=== PATIENT | male | born 1960 | race American Indian/Alaskan Native ===

== ENCOUNTER 2020-06-21 15:13 | Inpatient (IN) | payer OTHER ==
--- NOTE | 2020-06-21 15:40 | Event Note ---
ED Screening Note ED Screening Note: Patient is a 59-year-old male presents emergency room complaints of generalized abdominal pain and abdominal distention that began a week ago He states that the pain is now radiating to his back He has associated nausea but no vomiting He denies any diarrhea He states he had a normal bowel movement today He denies any blood in the stool He is a current every day tobacco user He endorses marijuana use He previously used to use cocaine He is a current everyday drinker and states he drinks both beer and liquor Abdomen is distended and firm This initial assessment/diagnostic orders/clinical plan/treatment(s) is/are subject to change based on patients health status, clinical progression and re-assessment by fellow clinical providers in the ED. Further treatment and workup at subsequent clinical providers discretion. Patient/guardian urged not to elope from the ED as their condition may be serious if not clinically assessed and managed. Initial orders include: labs, xr, ekg, ua MAIN evaluation as soon as possible, charge nurse danial notified pt needs room
[2020-06-21 16:19] LABS: Basophils % (Auto) 0.4 % (0.0-1.8); Eosinophils # (Auto) 0.2 K/mm3 (0.0-0.4); Eosinophils % (Auto) 2.2 % (0.0-4.3); Hematocrit 54.9 % (35.5-45.6); Lymphocytes # (Auto) 2.6 K/mm3 (1.2-5.4); Mean Corpuscular HGB Conc 35 % (32-34); Mean Corpuscular Volume 95 fl (84-94); Monocytes # (Auto) 0.5 K/mm3 (0.0-0.8); Monocytes % (Auto) 6.7 % (0.0-7.3); Platelet Count 224 K/mm3 (140-440)
[2020-06-21 16:27] LABS: Alanine Aminotransferase 22 units/L (7-56); Albumin 4.4 g/dL (3.9-5); BUN/Creatinine Ratio 16; Blood Urea Nitrogen 14 mg/dL (9-20); Calcium 9.6 mg/dL (8.4-10.2); Hemolysis Index 5
[2020-06-21 16:32] LABS: Bacteria,Urine 1+ /HPF (Negative); Bilirubin,Urine NEG (Negative); Blood,Urine MOD (Negative); Color,Urine Straw (Yellow); Protein,Urine <15 mg/dL mg/dL (Negative); Urobilinogen,Urine < 2.0 mg/dL (<2.0)
[2020-06-21 16:34] LABS: Partial Thromboplastin Time 26.2 Sec. (24.2-36.6)
--- NOTE | 2020-06-21 16:38 | XRay Report ---
CHEST 1 VIEW WITH ABDOMINAL SERIES INDICATION / CLINICAL INFORMATION: abd pain radiates to back, abd distension. COMPARISON: Comparison radiographs not available at the time of examination review FINDINGS: SUPPORT DEVICES: None. HEART / MEDIASTINUM: No significant abnormality. LUNGS / PLEURA: Blunting of the right costophrenic angle suggesting small pleural effusion. Minimal p eripheral opacities along the right lung No pneumothorax. TUBES / LINES: None. BOWEL GAS PATTERN: Nonobstructive gas pattern. FREE AIR / EXTRALUMINAL GAS: None seen. ADDITIONAL FINDINGS: IVC filter projects over the L2 vertebral body. IMPRESSION: 1. No acute abdominal abnormality. 2. Small right pleural effusion and linear opacities along the right lung periphery. This could repre sent atelectasis or edema. Recommend clinical correlation and continued follow-up. Signer Name: Betito Denise MD Signed: 06/21/2020 4:33 PM Workstation Name: [id number]
[2020-06-21] MEDS ORDERED: ONDANSETRON 4 MG/2 ML INJ IV ONE (16:57)
[2020-06-21] MEDS ORDERED: MORPHINE 4 MG/1 ML INJ IV ONE (16:57)
--- NOTE | 2020-06-21 17:07 | Emergency Department Report ---
ED Abdominal Pain HPI - General Chief Complaint: Abdominal Pain Stated Complaint: ABD PAIN Time Seen by Provider: 06/21/20 15:38 Source: patient Mode of arrival: Wheelchair Limitations: No Limitations - History of Present Illness Initial Comments: Patient is 59 years old male with no significant past medical history. Patient presented to the ER complaining of abdominal pain for approximately 1 week now. Patient describes his pain as fullness and aching with radiation to the back. Patient stated that he had a bowel movement this morning with no problem. Patient stated that he was vomiting. No fever or chills. Patient denied any previous abdominal surgery. He stated that he has had history of DVT and he had an IVC filter placed long time ago. MD Complaint: abdominal pain -: week(s) Location: diffuse Radiation: back Migration to: no migration Severity: moderate Severity scale (0 -10): 5 Quality: aching, fullness Consistency: constant Improves With: nothing Worsens With: nothing Associated Symptoms: denies other symptoms - Related Data Home Medications Medication Instructions Recorded Confirmed Last Taken No Known Home Medications [No 05/26/13 08/03/15 Unknown Reported Home Medications] Allergies Allergy/AdvReac Type Severity Reaction Status Date / Time No Known Allergies Allergy Verified 08/03/15 14:03 ED Review of Systems ROS: Stated complaint: ABD PAIN Other details as noted in HPI Comment: All other systems reviewed and negative Constitutional: denies: chills, fever Respiratory: denies: cough, shortness of breath, SOB with exertion, SOB at rest Cardiovascular: denies: chest pain, palpitations Gastrointestinal: abdominal pain. denies: nausea, vomiting, diarrhea, constipation, hematemesis, melena, hematochezia Musculoskeletal: back pain Neurological: denies: headache, weakness ED Past Medical Hx - Past Medical History Previous Medical History?: No Additional medical history: PE ? - Social History Smoking Status: Current Every Day Smoker Substance Use Type: Alcohol - Medications Home Medications: Home Medications Medication Instructions Recorded Confirmed Last Taken Type No Known Home Medications [No 05/26/13 08/03/15 Unknown History Reported Home Medications] ED Physical Exam - General Limitations: No Limitations General appearance: in distress (due to pain) - Head Head exam: Present: atraumatic, normocephalic, normal inspection - Eye Eye exam: Present: normal appearance - ENT ENT exam: Present: normal exam, normal orophraynx, mucous membranes moist - Neck Neck exam: Present: normal inspection, full ROM. Absent: tenderness, meningismu s - Respiratory Respiratory exam: Present: normal lung sounds bilaterally - Cardiovascular Cardiovascular Exam: Present: regular rate, normal rhythm, normal heart sounds - GI/Abdominal GI/Abdominal exam: Present: soft, distended, tenderness, normal bowel sounds. Absent: guarding, rebound, rigid, organomegaly, mass, bruit, pulsatile mass, hernia - Extremities Exam Extremities exam: Present: normal inspection, full ROM, normal capillary refill. Absent: tenderness, pedal edema, joint swelling, calf tenderness - Back Exam Back exam: Present: normal inspection, full ROM. Absent: CVA tenderness (R), C VA tenderness (L) - Neurological Exam Neurological exam: Present: alert, oriented X3, CN II-XII intact - Psychiatric Psychiatric exam: Present: normal mood - Skin Skin exam: Present: warm, intact, normal color ED Course Vital Signs 06/21/20 06/21/20 06/21/20 15:37 17:15 18:29 Temperature 98.1 F Pulse Rate 91 H 84 86 Respiratory 20 16 18 Rate Blood Pressure 185/116 Blood Pressure 161/109 166/107 [Right] O2 Sat by Pulse 98 94 99 Oximetry ED Medical Decision Making - Lab Data Result diagrams: 06/21/20 15:43 06/21/20 15:43 - EKG Data -: EKG Interpreted by Ia - Radiology Data Radiology results: report reviewed - Medical Decision Making Patient is 59 years old male with no significant past medical history. Patient presented to the ER complaining of abdominal pain for approximately 1 week now. Patient describes his pain as fullness and aching with radiation to the back. Patient stated that he had a bowel movement this morning with no problem. Patient stated that he was vomiting. No fever or chills. Patient denied any previous abdominal surgery. He stated that he has had history of DVT and he had an IVC filter placed long time ago. Patient received morphine, Dilaudid and Zofran. CT abdomen and pelvis showed small bowel obstruction. I discussed the patient with Dr. Ribeiro, she advised to bring NG tube, normal saline and admit to the hospitalist for further management. I discussed the patient with Dr. Romero, he agreed to admit the patient to medical service for further management. Critical care attestation.: If time is entered above; I have spent that time in minutes in the direct care of this critically ill patient, excluding procedure time. ED Disposition Clinical Impression: Acute abdominal pain, Small bowel obstruction Disposition: OP ADMIT IP TO THIS HOSP Is pt being admited?: Yes Condition: Stable
--- NOTE | 2020-06-21 18:59 | Cat Scan Report ---
CT ABDOMEN AND PELVIS WITH CONTRAST INDICATION / CLINICAL INFORMATION: MAIN. TECHNIQUE: Axial CT images were obtained through the abdomen and pelvis after 100 cc Omnipaque 300 milligrams pe rcent IV contrast. All CT scans at this location are performed using CT dose reduction for ALARA by means of automated exposure control. COMPARISON: None available. FINDINGS: LOWER CHEST: Linear scarring present right base. Heart size upper limits of normal LIVER: No significant abnormality. GALLBLADDER: No significant abnormality. BILE DUCTS: No significant abnormality. PANCREAS: No significant abnormality. SPLEEN: No significant abnormality. ADRENALS: No significant abnormality. RIGHT KIDNEY and URETER: No significant abnormality. LEFT KIDNEY and URETER: No significant abnormality. STOMACH and SMALL BOWEL: Multiple dilated loops of small bowel predominantly fluid-filled COLON: No significant abnormality. APPENDIX: No significant abnormality. PERITONEUM: No free fluid. No free air. No fluid collection. LYMPH NODES: No significant adenopathy. AORTA and ARTERIES: No significant abnormality. IVC and VEINS: IVC filter in place URINARY BLADDER: No significant abnormality. REPRODUCTIVE ORGANS: No significant abnormality. ADDITIONAL FINDINGS: Small hiatal hernia SKELETAL SYSTEM: No significant abnormality. IMPRESSION: 1. Abnormal intestinal gas pattern, small bowel obstruction should be considered 2. IVC filter in place Signer Name: Naga Field MD Signed: 06/21/2020 6:55 PM Workstation Name: [id number]
[2020-06-21] MEDS ORDERED: SODIUM CHLORIDE 0.9% 1000 ML 1,000 ML IV ONE (19:27)
[2020-06-21] MEDS ORDERED: HYDROmorphone 1 MG/1 ML INJ IV ONE (19:27)
[2020-06-21] MEDS ORDERED: ACETAMINOPHEN 325 MG TAB PO PRN (22:07)
[2020-06-21] MEDS ORDERED: MORPHINE 2 MG/1 ML INJ IV PRN (22:07)
[2020-06-21] MEDS ORDERED: METOCLOPRAMIDE 10 MG/2 ML INJ IV PRN (22:07)
[2020-06-21] MEDS ORDERED: ONDANSETRON 4 MG/2 ML INJ IV PRN (22:07)
--- NOTE | 2020-06-21 22:07 | History and Physical Report ---
History of Present Illness Date of examination: 06/21/20 Date of admission: 06/21/20 19:28 Chief complaint: Abdominal pain and vomiting for 1 week History of present illness: 59-year-old -Citizen Of [place] male with no significant past medical history comes into the emergency room for severe abdominal pain of 1 week duration. Abdominal pain was intermittent for 1 week associated with nausea and vomiting. From this morning the abdominal pain has increased and vomited 3-4 times. Pain is about 10 on a scale of 1-10 sharp in nature. Intermittent in nature. Radiation to the back present. Patient states he had a bowel movement this morning with no problems. Patient denies any past abdominal surgeries. Patient had one history of DVT/pulmonary embolism. Pulmonary embolism was in . Food is a exacerbating factor. Not eating anything is a relieving factor. Abdominal distention present. Pain happens on its - Past Medical History Previous Medical History?: No Additional medical history: PE ? Past surgical history No - Social History Smoking Status: Current Every Day Smoker Substance Use Type: Alcohol Family history Htn Review of Systems ROS: GI severe abdominal pain and nausea vomiting and abdominal distention present. 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 Skin no rash no itching Psychiatric no depression no homicidal or suicidal tendencies Hematologic no lymphedema or bruising Endocrine no polydipsia no polyuria no cold intolerance no heat intolerance Medications and Allergies Allergies Allergy/AdvReac Type Severity Reaction Status Date / Time No Known Allergies Allergy Verified 08/03/15 14:03 Home Medications Medication Instructions Recorded Confirmed Last Taken Type No Known Home Medications [No 05/26/13 06/22/20 Unknown History Reported Home Medications] Active Meds: Active Medications Sodium Chloride (Nacl 0.9% 1000 Ml) 1,000 mls @ 250 mls/hr IV ONCE ONE Stop: 06/21/20 23:26 Last Admin: 06/21/20 20:10 Dose: 250 mls/hr Documented by: Exam - Constitutional Vitals: Temp Pulse Resp BP Pulse Ox 98.1 F 85 24 187/124 91 06/21/20 15:37 06/21/20 20:01 06/21/20 20:01 06/21/20 20:01 06/21/20 20:01 General appearance: Present: no acute distress, well-nourished - EENT Eyes: Present: PERRL ENT: hearing intact, clear oral mucosa - Neck Neck: Present: supple, normal ROM - Respiratory Respiratory effort: normal Respiratory: bilateral: CTA - Cardiovascular Heart rate: 98 Rhythm: regular Heart Sounds: Present: S1 & S2. Absent: rub, click - Extremities Extremities: pulses symmetrical, No edema Peripheral Pulses: within normal limits - Abdominal General gastrointestinal: Present: soft, tender, distended, hypoactive bowel sounds Localized gastrointestinal: tender: diffuse, guarding: diffuse Male genitourinary: Present: normal - Integumentary Integumentary: Present: clear, warm, dry - Musculoskeletal Musculoskeletal: gait normal, strength equal bilaterally - Psychiatric Psychiatric: appropriate mood/affect, intact judgment & insight - Neurologic Neurologic: CNII-XII intact, moves all extremities - Allied Health Allied health notes reviewed: nursing, case management HEART Score - HEART Score Troponin: Troponin T < 0.010 ng/mL (0.00-0.029) 06/21/20 15:43 Results - Labs CBC & Chem 7: 06/21/20 15:43 06/21/20 15:43 Labs: Laboratory Last Values WBC 8.0 K/mm3 (4.5-11.0) 06/21/20 15:43 RBC 5.80 M/mm3 (3.65-5.03) H 06/21/20 15:43 Hgb 19.0 gm/dl (11.8-15.2) H 06/21/20 15:43 Hct 54.9 % (35.5-45.6) H 06/21/20 15:43 MCV 95 fl (84-94) H 06/21/20 15:43 MCH 33 pg (28-32) H 06/21/20 15:43 MCHC 35 % (32-34) H 06/21/20 15:43 RDW 14.0 % (13.2-15.2) 06/21/20 15:43 Plt Count 224 K/mm3 (140-440) 06/21/20 15:43 Lymph % (Auto) 33.0 % (13.4-35.0) 06/21/20 15:43 [place] % (Auto) 6.7 % (0.0-7.3) 06/21/20 15:43 Eos % (Auto) 2.2 % (0.0-4.3) 06/21/20 15:43 Baso % (Auto) 0.4 % (0.0-1.8) 06/21/20 15:43 Lymph # (Auto) 2.6 K/mm3 (1.2-5.4) 06/21/20 15:43 [place] # (Auto) 0.5 K/mm3 (0.0-0.8) 06/21/20 15:43 Eos # (Auto) 0.2 K/mm3 (0.0-0.4) 06/21/20 15:43 Baso # (Auto) 0.0 K/mm3 (0.0-0.1) 06/21/20 15:43 Seg Neutrophils % 57.7 % (40.0-70.0) 06/21/20 15:43 Seg Neutrophils # 4.6 K/mm3 (1.8-7.7) 06/21/20 15:43 PT 13.1 Sec. (12.2-14.9) 06/21/20 15:43 INR 1.00 (0.87-1.13) 06/21/20 15:43 APTT 26.2 Sec. (24.2-36.6) 06/21/20 15:43 Sodium 136 mmol/L (137-145) L 06/21/20 15:43 Potassium 4.6 mmol/L (3.6-5.0) 06/21/20 15:43 Chloride 98.2 mmol/L (98-107) 06/21/20 15:43 Carbon Dioxide 28 mmol/L (22-30) 06/21/20 15:43 Anion Gap 14 mmol/L 06/21/20 15:43 BUN 14 mg/dL (9-20) 06/21/20 15:43 Creatinine 0.9 mg/dL (0.8-1.3) 06/21/20 15:43 Estimated GFR > 60 ml/min 06/21/20 15:43 BUN/Creatinine Ratio 16 % 06/21/20 15:43 Glucose 115 mg/dL (75-100) H 06/21/20 15:43 Calcium 9.6 mg/dL (8.4-10.2) 06/21/20 15:43 Total Bilirubin 0.50 mg/dL (0.1-1.2) 06/21/20 15:43 AST 16 units/L (5-40) 06/21/20 15:43 ALT 22 units/L (7-56) 06/21/20 15:43 Alkaline Phosphatase 101 units/L (35-129) 06/21/20 15:43 Troponin T < 0.010 ng/mL (0.00-0.029) 06/21/20 15:43 NT-Pro-B Natriuret Pep 823.2 pg/mL (0-900) 06/21/20 15:43 Total Protein 7.4 g/dL (6.3-8.2) 06/21/20 15:43 Albumin 4.4 g/dL (3.9-5) 06/21/20 15:43 Albumin/Globulin Ratio 1.5 % 06/21/20 15:43 Lipase 51 units/L (13-60) 06/21/20 15:43 Urine Color Straw (Yellow) 06/21/20 Unknown Urine Turbidity Clear (Clear) 06/21/20 Unknown Urine pH 7.0 (5.0-7.0) 06/21/20 Unknown Ur Specific [place] 1.004 (1.003-1.030) 06/21/20 Unknown Urine Protein <15 mg/dl mg/dL (Negative) 06/21/20 Unknown Urine Glucose (UA) Neg mg/dL (Negative) 06/21/20 Unknown Urine Ketones Neg mg/dL (Negative) 06/21/20 Unknown Urine Blood Mod (Negative) 06/21/20 Unknown Urine Nitrite Neg (Negative) 06/21/20 Unknown Urine Bilirubin Neg (Negative) 06/21/20 Unknown Urine Urobilinogen < 2.0 mg/dL (<2.0) 06/21/20 Unknown Ur Leukocyte Esterase Neg (Negative) 06/21/20 Unknown Urine WBC (Auto) 2.0 /HPF (0.0-6.0) 06/21/20 Unknown Urine RBC (Auto) 1.0 /HPF (0.0-6.0) 06/21/20 Unknown U Epithel Cells (Auto) < 1.0 /HPF (0-13.0) 06/21/20 Unknown Urine Bacteria (Auto) 1+ /HPF (Negative) 06/21/20 Unknown - Imaging and Cardiology CT scan - abdomen: report reviewed Imaging and Cardiology: Chest x-ray No acute abdominal abnormality Small right pleural effusion and linear opacities along the right lung periphery this could represent atelectasis or edema. CT of the abdomen Abnormal intestinal gas pattern small obstruction should be considered IVC filter in place. Multiple dilated loops of small bowel predominantly fluid-filled Assessment and Plan Advance Directives: Yes (Full code) VTE prophylaxis?: Chemical Plan of care discussed with patient/family: Yes - Patient Problems (1) Small bowel obstruction Current Visit: Yes Status: Acute Plan to address problem: Small bowel obstruction Multiple dilated loops of small bowel with fluid-filled NG tube for now Surgical consult requested IV fluids and IV Zofran and IV metoclopramide Pain management with IV Dilaudid-patient in severe pain (2) Polycythemia due to fall in plasma volume Current Visit: Yes Status: Acute Plan to address problem: Due to fall in plasma volume secondary to vomiting IV fluids for now (3) Nicotine dependence Current Visit: Yes Status: Chronic Qualifiers: Nicotine product type: cigarettes Plan to address problem: Patient counseled Patient started on NicoDerm patch (4) DVT prophylaxis Current Visit: Yes Status: Acute Plan to address problem: On heparin and GI prophylaxis
[2020-06-21] MEDS ORDERED: SODIUM CHLORIDE 0.9% 1000 ML 1,000 ML IV SCH (22:15)
[2020-06-21] MEDS: HYDROmorphone 1 MG/1 ML INJ IV PRN (23:52)
[2020-06-21] MEDS: FAMOTIDINE 20 MG/2 ML INJ IV SCH (23:52)
[2020-06-21] MEDS: hydrALAZINE 20 MG/1 ML INJ IV PRN (23:55)
[2020-06-22] MEDS: HYDROmorphone 1 MG/1 ML INJ IV PRN (05:32)
[2020-06-22] MEDS: hydrALAZINE 20 MG/1 ML INJ IV PRN (05:32)
--- NOTE | 2020-06-22 07:49 | Progress Note ---
Assessment and Plan Assessment and plan: (1) Small bowel obstruction Current Visit: Yes Status: Acute Plan to address problem: Small bowel obstruction Multiple dilated loops of small bowel with fluid-filled NG tube for now Surgical consult requested IV fluids and IV Zofran and IV metoclopramide Pain management with IV Dilaudid-patient in severe pain (2) Polycythemia due to fall in plasma volume Current Visit: Yes Status: Acute Plan to address problem: Due to fall in plasma volume secondary to vomiting IV fluids for now (3) Nicotine dependence Current Visit: Yes Status: Chronic Qualifiers: Nicotine product type: cigarettes Plan to address problem: Patient counseled Patient started on NicoDerm patch (4) DVT prophylaxis Current Visit: Yes Status: Acute Plan to address problem: On heparin and GI prophylaxis 06/22/2020 -Patient has NG tube but is not on suction, was seen by general surgery and wants to keep the NG tube for now -Patient did not pass gas -Abdominal pain with distention -We will continue to monitor and follow general surgery recommendations. -Patient has high blood pressure and is on hydralazine IV as needed, will start with p.o. antihypertensives and pain medications once surgery cleared him for oral intake. History Interval history: Patient was seen and evaluated this morning Patient is complaining abdominal pain Patient has distended abdomen, did not pass gas, no bowel movement Does not have any vomiting, but did feel nauseous earlier Hospitalist Physical - Physical exam Narrative exam: Not in cardiopulmonary distress. The patient appeared well nourished and normally developed. Vital signs as documented. Head exam is unremarkable. No scleral icterus . Neck is without jugular venous distension, thyromegaly, or carotid bruits. Lungs are clear to auscultation. Cardiac exam reveals regular rate and Rhythm. Abdominal exam reveals terminal tenderness Extremities are nonedematous and both femoral and pedal pulses are normal. 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 No focal weakness. - Constitutional Vitals: Temp Pulse Resp BP Pulse Ox 98.3 F 91 H 20 185/112 98 06/22/20 04:48 06/22/20 04:48 06/22/20 05:32 06/22/20 04:48 06/22/20 04:48 General appearance: Present: no acute distress, well-nourished HEART Score - HEART Score Troponin: Troponin T < 0.010 ng/mL (0.00-0.029) 06/21/20 15:43 Results - Labs CBC & Chem 7: 06/22/20 08:03 06/22/20 08:03 Labs: Laboratory Last Values WBC 8.0 K/mm3 (4.5-11.0) 06/21/20 15:43 RBC 5.80 M/mm3 (3.65-5.03) H 06/21/20 15:43 Hgb 19.0 gm/dl (11.8-15.2) H 06/21/20 15:43 Hct 54.9 % (35.5-45.6) H 06/21/20 15:43 MCV 95 fl (84-94) H 06/21/20 15:43 MCH 33 pg (28-32) H 06/21/20 15:43 MCHC 35 % (32-34) H 06/21/20 15:43 RDW 14.0 % (13.2-15.2) 06/21/20 15:43 Plt Count 224 K/mm3 (140-440) 06/21/20 15:43 Lymph % (Auto) 33.0 % (13.4-35.0) 06/21/20 15:43 [place] % (Auto) 6.7 % (0.0-7.3) 06/21/20 15:43 Eos % (Auto) 2.2 % (0.0-4.3) 06/21/20 15:43 Baso % (Auto) 0.4 % (0.0-1.8) 06/21/20 15:43 Lymph # (Auto) 2.6 K/mm3 (1.2-5.4) 06/21/20 15:43 [place] # (Auto) 0.5 K/mm3 (0.0-0.8) 06/21/20 15:43 Eos # (Auto) 0.2 K/mm3 (0.0-0.4) 06/21/20 15:43 Baso # (Auto) 0.0 K/mm3 (0.0-0.1) 06/21/20 15:43 Seg Neutrophils % 57.7 % (40.0-70.0) 06/21/20 15:43 Seg Neutrophils # 4.6 K/mm3 (1.8-7.7) 06/21/20 15:43 PT 13.1 Sec. (12.2-14.9) 06/21/20 15:43 INR 1.00 (0.87-1.13) 06/21/20 15:43 APTT 26.2 Sec. (24.2-36.6) 06/21/20 15:43 Sodium 136 mmol/L (137-145) L 06/21/20 15:43 Potassium 4.6 mmol/L (3.6-5.0) 06/21/20 15:43 Chloride 98.2 mmol/L (98-107) 06/21/20 15:43 Carbon Dioxide 28 mmol/L (22-30) 06/21/20 15:43 Anion Gap 14 mmol/L 06/21/20 15:43 BUN 14 mg/dL (9-20) 06/21/20 15:43 Creatinine 0.9 mg/dL (0.8-1.3) 06/21/20 15:43 Estimated GFR > 60 ml/min 06/21/20 15:43 BUN/Creatinine Ratio 16 % 06/21/20 15:43 Glucose 115 mg/dL (75-100) H 06/21/20 15:43 Calcium 9.6 mg/dL (8.4-10.2) 06/21/20 15:43 Total Bilirubin 0.50 mg/dL (0.1-1.2) 06/21/20 15:43 AST 16 units/L (5-40) 06/21/20 15:43 ALT 22 units/L (7-56) 06/21/20 15:43 Alkaline Phosphatase 101 units/L (35-129) 06/21/20 15:43 Troponin T < 0.010 ng/mL (0.00-0.029) 06/21/20 15:43 NT-Pro-B Natriuret Pep 823.2 pg/mL (0-900) 06/21/20 15:43 Total Protein 7.4 g/dL (6.3-8.2) 06/21/20 15:43 Albumin 4.4 g/dL (3.9-5) 06/21/20 15:43 Albumin/Globulin Ratio 1.5 % 06/21/20 15:43 Lipase 51 units/L (13-60) 06/21/20 15:43 Urine Color Straw (Yellow) 06/21/20 Unknown Urine Turbidity Clear (Clear) 06/21/20 Unknown Urine pH 7.0 (5.0-7.0) 06/21/20 Unknown Ur Specific [place] 1.004 (1.003-1.030) 06/21/20 Unknown Urine Protein <15 mg/dl mg/dL (Negative) 06/21/20 Unknown Urine Glucose (UA) Neg mg/dL (Negative) 06/21/20 Unknown Urine Ketones Neg mg/dL (Negative) 06/21/20 Unknown Urine Blood Mod (Negative) 06/21/20 Unknown Urine Nitrite Neg (Negative) 06/21/20 Unknown Urine Bilirubin Neg (Negative) 06/21/20 Unknown Urine Urobilinogen < 2.0 mg/dL (<2.0) 06/21/20 Unknown Ur Leukocyte Esterase Neg (Negative) 06/21/20 Unknown Urine WBC (Auto) 2.0 /HPF (0.0-6.0) 06/21/20 Unknown Urine RBC (Auto) 1.0 /HPF (0.0-6.0) 06/21/20 Unknown U Epithel Cells (Auto) < 1.0 /HPF (0-13.0) 06/21/20 Unknown Urine Bacteria (Auto) 1+ /HPF (Negative) 06/21/20 Unknown Bower/IV: Voiding Method Urinal Active Medications - Current Medications Current Medications: Generic Name Dose Route Start Last Admin Trade Name Freq PRN Reason Stop Dose Admin Acetaminophen 650 mg 06/21/20 22:07 Acetaminophen 325 Mg Tab PO Q4H PRN Pain MILD(1-3)/Fever >100.5/PORRAS Famotidine 20 mg 06/21/20 23:00 06/21/20 23:52 Famotidine 20 Mg/2 Ml Inj IV 20 mg BID JESSIE Administration Heparin Sodium (Porcine) 5,000 unit 06/22/20 10:00 Heparin 5,000 Unit/1 Ml Vial SUB-Q Q12HR JESSIE Hydralazine HCl 10 mg 06/21/20 23:21 06/22/20 05:32 Hydralazine 20 Mg/1 Ml Inj IV 10 mg Q6H PRN Administration Hypertension Hydromorphone HCl 1 mg 06/21/20 22:07 06/22/20 05:32 Hydromorphone 1 Mg/1 Ml Inj IV 1 mg Q3H PRN Administration Pain , Severe (7-10) Sodium Chloride 1,000 mls @ 75 mls/hr 06/21/20 22:15 06/21/20 23:53 Nacl 0.9% 1000 Ml IV 75 mls/hr DIRECT JESSIE Administration Metoclopramide HCl 10 mg 06/21/20 22:07 Metoclopramide 10 Mg/2 Ml Inj IV Q6H PRN Nausea And Vomiting Morphine Sulfate 2 mg 06/21/20 22:07 Morphine 2 Mg/1 Ml Inj IV Q4H PRN Pain, Moderate (4-6) Ondansetron HCl 4 mg 06/21/20 22:07 06/21/20 23:51 Ondansetron 4 Mg/2 Ml Inj IV 4 mg Q3H PRN Administration Nausea And Vomiting Sodium Chloride 10 ml 06/22/20 10:00 06/21/20 23:53 Sodium Chloride 0.9% 10 Ml Flush Syringe IV 10 ml BID JESSIE Administration Sodium Chloride 10 ml 06/21/20 22:07 Sodium Chloride 0.9% 10 Ml Flush Syringe IV PRN PRN LINE FLUSH
[2020-06-22 08:25] LABS: Basophils % (Auto) 0.4 % (0.0-1.8); Eosinophils # (Auto) 0.1 K/mm3 (0.0-0.4); Eosinophils % (Auto) 1.9 % (0.0-4.3); Lymphocytes # (Auto) 2.5 K/mm3 (1.2-5.4); Lymphocytes % (Auto) 35.6 % (13.4-35.0); Mean Corpuscular HGB Conc 35 % (32-34); Mean Corpuscular Volume 94 fl (84-94); Monocytes # (Auto) 0.5 K/mm3 (0.0-0.8); Monocytes % (Auto) 7.4 % (0.0-7.3); Platelet Count 203 K/mm3 (140-440); Red Blood Count 5.67 M/mm3 (3.65-5.03); Red Cell Distribution Width 13.4 % (13.2-15.2)
[2020-06-22 08:31] LABS: Hematocrit 53.5 % (35.5-45.6); Hemoglobin 18.9 gm/dl (11.8-15.2)
[2020-06-22 08:49] LABS: Alanine Aminotransferase 20 units/L (7-56); Albumin 3.9 g/dL (3.9-5); BUN/Creatinine Ratio 11; Blood Urea Nitrogen 9 mg/dL (9-20); Calcium 9.1 mg/dL (8.4-10.2); Hemolysis Index 17
[2020-06-22] MEDS: FAMOTIDINE 20 MG/2 ML INJ IV SCH ×2 (09:46→21:06)
[2020-06-22] MEDS: HEPARIN 5,000 UNIT/1 ML VIAL SUB-Q SCH ×2 (09:46→21:06)
[2020-06-22] MEDS ORDERED: IBUPROFEN 800 MG TAB PO PRN (13:19)
[2020-06-22] MEDS ORDERED: POLYETHYLENE GLYCOL 3350 17 GM POWDER PO PRN (13:20)
--- NOTE | 2020-06-22 13:25 | Consultation ---
History of Present Illness Consult date: 06/22/20 Reason for consult: abdominal pain Chief complaint: Abdominal pain - History of present illness History of present illness: 59-year-old male who presented to the emergency room with 1 day of mid and lower abdominal pain that started suddenly. The patient states that he has never had pain like this before. The pain was sharp and constant. He denies nausea or vomiting. He states that he did have a bowel movement before coming to the hospital which was formed and green. He is passing flatus. Today he states he feels much better. He does complain of a headache and some flank pain but states his abdominal pain is completely resolved. He feels hungry. No nausea or vomiting. No fevers or chills. He states the last thing he ate was a few chicken sandwiches from [employer]. No sick contacts. Past History Past Medical History: other (? PE) Past Surgical History: No surgical history Social history: smoking, alcohol abuse Family history: no significant family history Medications and Allergies Allergies Allergy/AdvReac Type Severity Reaction Status Date / Time No Known Allergies Allergy Verified 08/03/15 14:03 Home Medications Medication Instructions Recorded Confirmed Last Taken Type No Known Home Medications [No 05/26/13 06/22/20 Unknown History Reported Home Medications] Active Meds: Active Medications Acetaminophen (Acetaminophen 325 Mg Tab) 650 mg PO Q4H PRN PRN Reason: Pain MILD(1-3)/Fever >100.5/PORRAS Last Admin: 06/22/20 09:55 Dose: 650 mg Documented by: Docusate Sodium (Docusate Sodium 100 Mg Cap) 100 mg PO BID [facility] Famotidine (Famotidine 20 Mg/2 Ml Inj) 20 mg IV BID [facility] Last Admin: 06/22/20 09:46 Dose: 20 mg Documented by: Heparin Sodium (Porcine) (Heparin 5,000 Unit/1 Ml Vial) 5,000 unit SUB-Q Q12HR [facility] Last Admin: 06/22/20 09:46 Dose: 5,000 unit Documented by: Hydralazine HCl (Hydralazine 20 Mg/1 Ml Inj) 10 mg IV Q6H PRN PRN Reason: Hypertension Last Admin: 06/22/20 05:32 Dose: 10 mg Documented by: Hydromorphone HCl (Hydromorphone 1 Mg/1 Ml Inj) 1 mg IV Q3H PRN PRN Reason: Pain , Severe (7-10) Last Admin: 06/22/20 05:32 Dose: 1 mg Documented by: Sodium Chloride (Nacl 0.9% 1000 Ml) 1,000 mls @ 75 mls/hr IV DIRECT [facility] Last Admin: 06/21/20 23:53 Dose: 75 mls/hr Documented by: Ibuprofen (Ibuprofen 800 Mg Tab) 800 mg PO Q8H PRN PRN Reason: Headache Metoclopramide HCl (Metoclopramide 10 Mg/2 Ml Inj) 10 mg IV Q6H PRN PRN Reason: Nausea And Vomiting Morphine Sulfate (Morphine 2 Mg/1 Ml Inj) 2 mg IV Q4H PRN PRN Reason: Pain, Moderate (4-6) Ondansetron HCl (Ondansetron 4 Mg/2 Ml Inj) 4 mg IV Q3H PRN PRN Reason: Nausea And Vomiting Last Admin: 06/21/20 23:51 Dose: 4 mg Documented by: Polyethylene Glycol (Polyethylene Glycol 3350 17 Gm Powder) 17 gm PO QDAY PRN PRN Reason: Constipation Sodium Chloride (Sodium Chloride 0.9% 10 Ml Flush Syringe) 10 ml IV BID [facility] Last Admin: 06/22/20 09:47 Dose: 10 ml Documented by: Sodium Chloride (Sodium Chloride 0.9% 10 Ml Flush Syringe) 10 ml IV PRN PRN PRN Reason: LINE FLUSH Review of Systems All systems: negative (10 point ROS performed and negative except for that listed in HPI) Exam Vital Signs Temp Pulse Resp BP Pulse Ox 98.1 F 91 H 20 185/116 98 06/21/20 15:37 06/21/20 15:37 06/21/20 15:37 06/21/20 15:37 06/21/20 15:37 Narrative exam: Gen.: Awake, alert, oriented 3. No apparent distress ENT: NG tube with scant clear mucus aspirate. Trachea midline. No lymphadenopathy. No scleral icterus or conjunctival pallor CV: S1, S2 present Respiratory: No audible wheezes Abdomen: Soft, mildly distendedprotuberant, nontender. No rebound, rigidity, guarding Extremities: No clubbing, cyanosis, edema Results - Labs 06/22/20 08:03 06/22/20 08:03 Abnormal lab results 06/21/20 06/21/2021 Range/Units 15:43 15:43 08:03 RBC 5.80 H 5.67 H (3.65-5.03) M/mm3 Hgb 19.0 H 18.9 H (11.8-15.2) gm/dl Hct 54.9 H 53.5 H (35.5-45.6) % MCV 95 H (84-94) fl MCH 33 H 33 H (28-32) pg MCHC 35 H 35 H (32-34) % Lymph % (Auto) 35.6 H (13.4-35.0) % [place] % (Auto) 7.4 H (0.0-7.3) % Sodium 136 L (137-145) mmol/L Glucose 115 H (75-100) mg/dL 06/22/20 Range/Units 08:03 RBC (3.65-5.03) M/mm3 Hgb (11.8-15.2) gm/dl Hct (35.5-45.6) % MCV (84-94) fl MCH (28-32) pg MCHC (32-34) % Lymph % (Auto) (13.4-35.0) % [place] % (Auto) (0.0-7.3) % Sodium (137-145) mmol/L Glucose 114 H (75-100) mg/dL Diabetes panel 06/21/20 06/22/20 06/22/20 Range/Units 15:43 08:03 08:03 Sodium 136 L 137 (137-145) mmol/L Potassium 4.6 4.4 (3.6-5.0) mmol/L Chloride 98.2 102.7 (98-107) mmol/L Carbon Dioxide 28 25 (22-30) mmol/L BUN 14 9 (9-20) mg/dL Creatinine 0.9 0.8 (0.8-1.3) mg/dL Glucose 115 H 114 H (75-100) mg/dL Hemoglobin A1c 6.0 (4-6) % Calcium 9.6 9.1 (8.4-10.2) mg/dL AST 16 17 (5-40) units/L ALT 22 20 (7-56) units/L Alkaline Phosphatase 101 94 (35-129) units/L Total Protein 7.4 6.3 (6.3-8.2) g/dL Albumin 4.4 3.9 (3.9-5) g/dL Calcium panel 06/21/20 06/22/20 Range/Units 15:43 08:03 Calcium 9.6 9.1 (8.4-10.2) mg/dL Albumin 4.4 3.9 (3.9-5) g/dL Pituitary panel 06/21/20 06/22/20 Range/Units 15:43 08:03 Sodium 136 L 137 (137-145) mmol/L Potassium 4.6 4.4 (3.6-5.0) mmol/L Chloride 98.2 102.7 (98-107) mmol/L Carbon Dioxide 28 25 (22-30) mmol/L BUN 14 9 (9-20) mg/dL Creatinine 0.9 0.8 (0.8-1.3) mg/dL Glucose 115 H 114 H (75-100) mg/dL Calcium 9.6 9.1 (8.4-10.2) mg/dL Adrenal panel 06/21/20 06/22/20 Range/Units 15:43 08:03 Sodium 136 L 137 (137-145) mmol/L Potassium 4.6 4.4 (3.6-5.0) mmol/L Chloride 98.2 102.7 (98-107) mmol/L Carbon Dioxide 28 25 (22-30) mmol/L BUN 14 9 (9-20) mg/dL Creatinine 0.9 0.8 (0.8-1.3) mg/dL Glucose 115 H 114 H (75-100) mg/dL Calcium 9.6 9.1 (8.4-10.2) mg/dL Total Bilirubin 0.50 0.90 (0.1-1.2) mg/dL AST 16 17 (5-40) units/L ALT 22 20 (7-56) units/L Alkaline Phosphatase 101 94 (35-129) units/L Total Protein 7.4 6.3 (6.3-8.2) g/dL Albumin 4.4 3.9 (3.9-5) g/dL - Imaging CT scan - abdomen: report reviewed, image reviewed CT scan - pelvis: report reviewed, image reviewed Assessment and Plan 59-year-old male with abdominal pain, fluid-filled small bowel loops - likely enteritis Patient stable without nausea vomiting. Abdominal pain is resolved. White count is normal. Electrolytes are within normal limits. Plan: 1. DC NGT 2. start CLD, adv as anastacio 3. gentle IVF 4. GI ppx 5. Prn pain control 6. Back pain - UA neg. further w/u per 1' team 7. bowel regimen 8. No acute surgical intervention at this time Thank you for this consultation. Please call with any questions or concerns. Evaluation and treatment of this patient was during the time of the national and state emergency arising from COVID19 coronavirus pandemic. Treatment and procedures performed meet the current and available best practice and guidelines for patient during the COVID pandemic.
[2020-06-22] MEDS: hydrALAZINE 25 MG TAB PO SCH ×3 (14:10→21:05)
[2020-06-22] MEDS: NIFEdipine XL 90 MG TAB PO SCH (14:10)
--- NOTE | 2020-06-22 14:11 | XRay Report ---
ABDOMEN 4 VIEW(S) INDICATION: Small bowel obstruction. COMPARISON: Acute abdominal series and CT abdomen and pelvis with contrast from 06/21/2020. FINDINGS: Bowel gas pattern: No dilated bowel loops or other significant abnormalities. Free air: None seen. Stones: None seen. Chest: Right pleural-parenchymal scarring is unchanged. No other significant abnormality. Additional Findings: An NG tube terminates over the gastric body. A previously seen IVC filter is unc hanged. IMPRESSION: 1. No radiographic evidence of a small bowel obstruction or other acute abnormality. 2. IVC Filter Recommendation: IVC filters should be removed if possible when they are no longer clini raymond necessary. (1) Refer to the established IVC filter management plan; (2) If there is no establis hed plan for the patient's IVC filter, consider referral to interventional/vascular clinician on a no nemergent basis for evaluation. Signer Name: Wilfrid Sher MD Signed: 06/22/2020 9:41 AM Workstation Name: [id number]
[2020-06-22] MEDS: oxyCODONE /ACETAMINOPHEN 5-325MG TAB PO PRN (21:05)
[2020-06-22] MEDS: DOCUSATE SODIUM 100 MG CAP PO SCH (21:05)
[2020-06-23] MEDS: oxyCODONE /ACETAMINOPHEN 5-325MG TAB PO PRN ×2 (06:12→18:17)
[2020-06-23] MEDS: hydrALAZINE 25 MG TAB PO SCH ×3 (06:13→21:29)
--- NOTE | 2020-06-23 09:33 | Electrocardiograph Report ---
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
[2020-06-23] MEDS: DICYCLOMINE 10 MG/5 ML ORAL LIQD PO SCH ×4 (10:11→21:28)
[2020-06-23] MEDS: DOCUSATE SODIUM 100 MG CAP PO SCH ×2 (10:12→21:28)
[2020-06-23] MEDS: FAMOTIDINE 20 MG/2 ML INJ IV SCH ×2 (10:13→21:28)
[2020-06-23] MEDS: NIFEdipine XL 90 MG TAB PO SCH (10:13)
[2020-06-23] MEDS: HEPARIN 5,000 UNIT/1 ML VIAL SUB-Q SCH ×2 (10:14→21:28)
[2020-06-23] MEDS ORDERED: oxyCODONE /ACETAMINOPHEN 5-325MG TAB PO SCH (11:00)
[2020-06-23] MEDS: CYCLOBENZAPRINE 10 MG TAB PO SCH ×2 (11:03→18:12)
--- NOTE | 2020-06-23 11:24 | Progress Note ---
Assessment and Plan Assessment and plan: (1) Small bowel obstruction Current Visit: Yes Status: Acute Plan to address problem: Small bowel obstruction Multiple dilated loops of small bowel with fluid-filled NG tube for now Surgical consult requested IV fluids and IV Zofran and IV metoclopramide Pain management with IV Dilaudid-patient in severe pain (2) Polycythemia due to fall in plasma volume Current Visit: Yes Status: Acute Plan to address problem: Due to fall in plasma volume secondary to vomiting IV fluids for now (3) Nicotine dependence Current Visit: Yes Status: Chronic Qualifiers: Nicotine product type: cigarettes Plan to address problem: Patient counseled Patient started on NicoDerm patch (4) DVT prophylaxis Current Visit: Yes Status: Acute Plan to address problem: On heparin and GI prophylaxis 06/22/2020 -Patient has NG tube but is not on suction, was seen by general surgery and wants to keep the NG tube for now -Patient did not pass gas -Abdominal pain with distention -We will continue to monitor and follow general surgery recommendations. -Patient has high blood pressure and is on hydralazine IV as needed, will start with p.o. antihypertensives and pain medications once surgery cleared him for oral intake. 06/23/2020 -Patient had bowel movement yesterday. X-ray showed resolution of intestinal obstruction -Patient is complaining severe back/kidney pain. CT was negative for any abnormalities in the kidney. Renal function is within normal limit -Pain control -Patient has been using cocaine and marijuana; counseled about cessation of using it -We will do x-ray of the lumbar spine, PT evaluation. History Interval history: Patient was seen and evaluated this morning She does complaining a lot of back pain Patient had bowel movement yesterday Hospitalist Physical - Physical exam Narrative exam: Not in cardiopulmonary distress. The patient appeared well nourished and normally developed. Vital signs as documented. Head exam is unremarkable. No scleral icterus . Neck is without jugular venous distension, thyromegaly, or carotid bruits. Lungs are clear to auscultation. Cardiac exam reveals regular rate and Rhythm. Abdominal exam reveals terminal tenderness Extremities are nonedematous and both femoral and pedal pulses are normal. 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 No focal weakness. - Constitutional Vitals: Temp Pulse Resp BP Pulse Ox 97.3 F L 80 20 111/77 97 06/23/20 10:29 06/23/20 10:29 06/23/20 10:29 06/23/20 10:29 06/23/20 10:29 General appearance: Present: no acute distress, well-nourished HEART Score - HEART Score Troponin: Troponin T < 0.010 ng/mL (0.00-0.029) 06/21/20 15:43 Results - Labs CBC & Chem 7: 06/22/20 08:03 06/22/20 08:03 Labs: Laboratory Last Values WBC 7.0 K/mm3 (4.5-11.0) 06/22/20 08:03 RBC 5.67 M/mm3 (3.65-5.03) H 06/22/20 08:03 Hgb 18.9 gm/dl (11.8-15.2) H 06/22/20 08:03 Hct 53.5 % (35.5-45.6) H 06/22/20 08:03 MCV 94 fl (84-94) 06/22/20 08:03 MCH 33 pg (28-32) H 06/22/20 08:03 MCHC 35 % (32-34) H 06/22/20 08:03 RDW 13.4 % (13.2-15.2) 06/22/20 08:03 Plt Count 203 K/mm3 (140-440) 06/22/20 08:03 Lymph % (Auto) 35.6 % (13.4-35.0) H 06/22/20 08:03 Weber % (Auto) 7.4 % (0.0-7.3) H 06/22/20 08:03 Eos % (Auto) 1.9 % (0.0-4.3) 06/22/20 08:03 Baso % (Auto) 0.4 % (0.0-1.8) 06/22/20 08:03 Lymph # (Auto) 2.5 K/mm3 (1.2-5.4) 06/22/20 08:03 Weber # (Auto) 0.5 K/mm3 (0.0-0.8) 06/22/20 08:03 Eos # (Auto) 0.1 K/mm3 (0.0-0.4) 06/22/20 08:03 Baso # (Auto) 0.0 K/mm3 (0.0-0.1) 06/22/20 08:03 Seg Neutrophils % 54.7 % (40.0-70.0) 06/22/20 08:03 Seg Neutrophils # 3.8 K/mm3 (1.8-7.7) 06/22/20 08:03 PT 13.1 Sec. (12.2-14.9) 06/21/20 15:43 INR 1.00 (0.87-1.13) 06/21/20 15:43 APTT 26.2 Sec. (24.2-36.6) 06/21/20 15:43 Sodium 137 mmol/L (137-145) 06/22/20 08:03 Potassium 4.4 mmol/L (3.6-5.0) 06/22/20 08:03 Chloride 102.7 mmol/L (98-107) 06/22/20 08:03 Carbon Dioxide 25 mmol/L (22-30) 06/22/20 08:03 Anion Gap 14 mmol/L 06/22/20 08:03 BUN 9 mg/dL (9-20) 06/22/20 08:03 Creatinine 0.8 mg/dL (0.8-1.3) 06/22/20 08:03 Estimated GFR > 60 ml/min 06/22/20 08:03 BUN/Creatinine Ratio 11 % 06/22/20 08:03 Glucose 114 mg/dL (75-100) H 06/22/20 08:03 Hemoglobin A1c 6.0 % (4-6) 06/22/20 08:03 Calcium 9.1 mg/dL (8.4-10.2) 06/22/20 08:03 Total Bilirubin 0.90 mg/dL (0.1-1.2) 06/22/20 08:03 AST 17 units/L (5-40) 06/22/20 08:03 ALT 20 units/L (7-56) 06/22/20 08:03 Alkaline Phosphatase 94 units/L (35-129) 06/22/20 08:03 Troponin T < 0.010 ng/mL (0.00-0.029) 06/21/20 15:43 NT-Pro-B Natriuret Pep 823.2 pg/mL (0-900) 06/21/20 15:43 Total Protein 6.3 g/dL (6.3-8.2) 06/22/20 08:03 Albumin 3.9 g/dL (3.9-5) 06/22/20 08:03 Albumin/Globulin Ratio 1.6 % 06/22/20 08:03 Lipase 51 units/L (13-60) 06/21/20 15:43 Urine Color Straw (Yellow) 06/21/20 Unknown Urine Turbidity Clear (Clear) 06/21/20 Unknown Urine pH 7.0 (5.0-7.0) 06/21/20 Unknown Ur Specific [place] 1.004 (1.003-1.030) 06/21/20 Unknown Urine Protein <15 mg/dl mg/dL (Negative) 06/21/20 Unknown Urine Glucose (UA) Neg mg/dL (Negative) 06/21/20 Unknown Urine Ketones Neg mg/dL (Negative) 06/21/20 Unknown Urine Blood Mod (Negative) 06/21/20 Unknown Urine Nitrite Neg (Negative) 06/21/20 Unknown Urine Bilirubin Neg (Negative) 06/21/20 Unknown Urine Urobilinogen < 2.0 mg/dL (<2.0) 06/21/20 Unknown Ur Leukocyte Esterase Neg (Negative) 06/21/20 Unknown Urine WBC (Auto) 2.0 /HPF (0.0-6.0) 06/21/20 Unknown Urine RBC (Auto) 1.0 /HPF (0.0-6.0) 06/21/20 Unknown U Epithel Cells (Auto) < 1.0 /HPF (0-13.0) 06/21/20 Unknown Urine Bacteria (Auto) 1+ /HPF (Negative) 06/21/20 Unknown Bower/IV: Voiding Method Urinal Active Medications - Current Medications Current Medications: Generic Name Dose Route Start Last Admin Trade Name Freq PRN Reason Stop Dose Admin Acetaminophen 650 mg 06/21/20 22:07 06/22/20 09:55 Acetaminophen 325 Mg Tab PO 650 mg Q4H PRN Administration Pain MILD(1-3)/Fever >100.5/PORRAS Cyclobenzaprine HCl 10 mg 06/23/20 11:00 06/23/20 11:03 Cyclobenzaprine 10 Mg Tab PO 10 mg Q8H JESSIE Administration Dicyclomine HCl 10 mg 06/23/20 10:00 06/23/20 10:11 Dicyclomine 10 Mg/5 Ml Oral Liqd PO Not Given QID [facility] Docusate Sodium 100 mg 06/22/20 22:00 06/23/20 10:12 Docusate Sodium 100 Mg Cap PO 100 mg BID [facility] Administration Famotidine 20 mg 06/21/20 23:00 06/23/20 10:13 Famotidine 20 Mg/2 Ml Inj IV 20 mg BID [facility] Administration Heparin Sodium (Porcine) 5,000 unit 06/22/20 10:00 06/23/20 10:14 Heparin 5,000 Unit/1 Ml Vial SUB-Q 5,000 unit Q12HR [facility] Administration Hydralazine HCl 10 mg 06/21/20 23:21 06/22/20 05:32 Hydralazine 20 Mg/1 Ml Inj IV 10 mg Q6H PRN Administration Hypertension Hydralazine HCl 50 mg 06/22/20 13:33 06/23/20 06:13 Hydralazine 25 Mg Tab PO 50 mg Q8HR [facility] Administration Hydromorphone HCl 1 mg 06/21/20 22:07 06/22/20 05:32 Hydromorphone 1 Mg/1 Ml Inj IV 1 mg Q3H PRN Administration Pain , Severe (7-10) Ibuprofen 800 mg 06/22/20 13:19 06/22/20 16:40 Ibuprofen 800 Mg Tab PO 800 mg Q8H PRN Administration Headache Morphine Sulfate 2 mg 06/21/20 22:07 Morphine 2 Mg/1 Ml Inj IV Q4H PRN Pain, Moderate (4-6) Nifedipine 90 mg 06/22/20 14:00 06/23/20 10:13 Nifedipine Xl 90 Mg Tab PO Not Given QDAY [facility] Ondansetron HCl 4 mg 06/21/20 22:07 06/21/20 23:51 Ondansetron 4 Mg/2 Ml Inj IV 4 mg Q3H PRN Administration Nausea And Vomiting Oxycodone/Acetaminophen 2 tab 06/23/20 10:30 Oxycodone /Acetaminophen 5-325mg Tab PO Q6H PRN Pain, Moderate (4-6) Oxycodone/Acetaminophen 1 tab 06/23/20 11:00 Oxycodone /Acetaminophen 5-325mg Tab PO 06/23/20 13:00 ONCE JESSIE Polyethylene Glycol 17 gm 06/22/20 13:20 Polyethylene Glycol 3350 17 Gm Powder PO QDAY PRN Constipation Sodium Chloride 10 ml 06/22/20 10:00 06/23/20 10:13 Sodium Chloride 0.9% 10 Ml Flush Syringe IV 10 ml BID JESSIE Administration Sodium Chloride 10 ml 06/21/20 22:07 Sodium Chloride 0.9% 10 Ml Flush Syringe IV PRN PRN LINE FLUSH
--- NOTE | 2020-06-23 13:44 | XRay Report ---
LUMBOSACRAL SPINE 3 VIEWS INDICATION / CLINICAL INFORMATION: Lower back pain. COMPARISON: None available. FINDINGS: BONES / JOINT(S): There are 4 non-ribbed vertebral bodies There is moderate anterior spurring at what I will refer to as L3-4 and milder anterior spurring at L4-5 without significant disc space narrowin g. There are mild hypertrophic changes involving the facet joints in the lower lumbar spine bilateral ly. The pedicles are intact and the SI joints are normal. There is no evidence of fracture, subluxati on or destructive lesion. SOFT TISSUES: No significant abnormality. ADDITIONAL FINDINGS: There is an IVC filter centered at the L3 level on the right. IMPRESSION: 1. Mild spondylosis. 2. IVC filter without acute complication. IVC Filter Recommendation: IVC filters should be removed if possible when they are no longer clinical ly necessary. (1) Refer to the established IVC filter management plan; (2) If there is no established plan for the patient's IVC filter, consider referral to interventional/vascular clinician on a nonem ergent basis for evaluation. Signer Name: Betito Darling MD Signed: 06/23/2020 1:39 PM Workstation Name: [id number]
--- NOTE | 2020-06-23 14:08 | Progress Note ---
Assessment and Plan 59-year-old male with abdominal pain, fluid-filled small bowel loops - likely enteritis Patient stable, tolerating diet without nausea vomiting. Abdominal pain is resolved. White count is normal. Electrolytes are within normal limits. Plan: 1. adv diet as anastacio 2. recommend further w/u of back pain - etiology unknown. May need renal u/s vs CT A/P without IV contrast to evaluate for kidney stones. Lumbar xr ordered. Will defer to primary team. Will s/o. Thank you. Please call with any questions or concerns. Evaluation and treatment of this patient was during the time of the national and state emergency arising from COVID19 coronavirus pandemic. Treatment and procedures performed meet the current and available best practice and guidelines for patient during the COVID pandemic. Subjective Date of service: 06/23/20 Narrative: Pt seen and examined. Denies abdominal pain, n/v. Tolerating clear liquid diet. Had small BM yesterday and is passing flatus. c/o severe b/l lower back pain R>L. Objective Vital Signs - 12hr 06/23/20 06/23/20 06/23/20 05:37 06:12 10:29 Temperature 98.0 F 97.3 F L Pulse Rate 103 H 80 Respiratory 18 18 20 Rate Blood Pressure 129/78 Blood Pressure 111/77 [Right] O2 Sat by Pulse 94 97 Oximetry - General physical appearance Narrative Exam: Gen: AAOx3. NAD CV; S1, S2+ Resp: even and unlabored Abd: soft, protuberant, NT. No r/r/g Ext: no c/c/e Musc: +CVA TTP R>L - Labs 06/22/20 08:03 06/22/20 08:03
[2020-06-24] MEDS: CYCLOBENZAPRINE 10 MG TAB PO SCH ×3 (02:16→18:06)
[2020-06-24] MEDS: hydrALAZINE 25 MG TAB PO SCH ×2 (05:52→15:13)
[2020-06-24] MEDS: oxyCODONE /ACETAMINOPHEN 5-325MG TAB PO PRN (05:54)
[2020-06-24 06:30] LABS: Basophils % (Auto) 0.9 % (0.0-1.8); Eosinophils # (Auto) 0.2 K/mm3 (0.0-0.4); Eosinophils % (Auto) 4.4 % (0.0-4.3); Hematocrit 53.8 % (35.5-45.6); Hemoglobin 18.3 gm/dl (11.8-15.2); Lymphocytes % (Auto) 39.6 % (13.4-35.0); Mean Corpuscular HGB Conc 34 % (32-34); Mean Corpuscular Volume 94 fl (84-94); Monocytes # (Auto) 0.4 K/mm3 (0.0-0.8); Monocytes % (Auto) 8.3 % (0.0-7.3); Platelet Count 220 K/mm3 (140-440); Red Blood Count 5.73 M/mm3 (3.65-5.03); Red Cell Distribution Width 13.7 % (13.2-15.2)
[2020-06-24 06:45] LABS: BUN/Creatinine Ratio 12; Blood Urea Nitrogen 12 mg/dL (9-20); Calcium 9.2 mg/dL (8.4-10.2); Hemolysis Index 16
--- NOTE | 2020-06-24 08:14 | Cat Scan Report ---
CT ABDOMEN AND PELVIS WITH CONTRAST HISTORY: MAIN. COMPARISON: None. TECHNIQUE: CT images of the abdomen and pelvis were obtained following administration of intravenous contrast. All CT scans at this location are performed using CT dose reduction for ALARA by means of automated exposure control. CONTRAST: 100 ml of intravenous contrast administered. FINDINGS: Lungs/bones: There is increased density and atelectasis within the right lower lung. Large dense are a of opacity in the right lower lung measures 5.8 x 1.6 cm. Abdomen/pelvis: There is fatty infiltration of the liver. Spleen, adrenal glands, pancreas and gallb ladder appear normal. Small hiatal hernia. Thickening of the distal esophagus. Kidneys appear normal. There are fluid-filled small bowel loops however no dilatation or evidence for obstructive change. N o focal inflammatory change. No free fluid is identified. There may be a tiny amount of gas within th e urinary bladder is fundus degenerative changes seen throughout spine. Posterior disc bulges at L4-5 and L5-S1. Mild atherosclerotic changes seen throughout the aorta and IVC filter is noted. IMPRESSION: 1. No evidence for bowel obstruction is seen. The left colon wall appears mildly thickened however th ere is incomplete distention. No focal inflammatory change. 2. Increased densities in the lower lungs with larger solid density which could represent atelectasis measuring 5.8 x 1.6 cm in the right lower lung. Infiltrate cannot be excluded. 3. Tiny focus of gas in urinary bladder. Correlation with urinalysis. Kidneys appear normal in size a nd shape and appearance. 4. Degenerative changes seen throughout spine. Signer Name: Elmer Medellin MD Signed: 06/24/2020 8:09 AM Workstation Name: [id number]
--- NOTE | 2020-06-24 08:48 | Progress Note ---
Assessment and Plan Assessment and plan: (1) Small bowel obstruction Current Visit: Yes Status: Acute Plan to address problem: Small bowel obstruction Multiple dilated loops of small bowel with fluid-filled NG tube for now Surgical consult requested IV fluids and IV Zofran and IV metoclopramide Pain management with IV Dilaudid-patient in severe pain (2) Polycythemia due to fall in plasma volume Current Visit: Yes Status: Acute Plan to address problem: Due to fall in plasma volume secondary to vomiting IV fluids for now (3) Nicotine dependence Current Visit: Yes Status: Chronic Qualifiers: Nicotine product type: cigarettes Plan to address problem: Patient counseled Patient started on NicoDerm patch (4) DVT prophylaxis Current Visit: Yes Status: Acute Plan to address problem: On heparin and GI prophylaxis 06/22/2020 -Patient has NG tube but is not on suction, was seen by general surgery and wants to keep the NG tube for now -Patient did not pass gas -Abdominal pain with distention -We will continue to monitor and follow general surgery recommendations. -Patient has high blood pressure and is on hydralazine IV as needed, will start with p.o. antihypertensives and pain medications once surgery cleared him for oral intake. 06/23/2020 -Patient had bowel movement yesterday. X-ray showed resolution of intestinal obstruction -Patient is complaining severe back/kidney pain. CT was negative for any abnormalities in the kidney. Renal function is within normal limit -Pain control -Patient has been using cocaine and marijuana; counseled about cessation of using it -We will do x-ray of the lumbar spine, PT evaluation. 06/24/2020 - CT abdomen and pelvis with contrast was done and significant for right lower lung mass 5.8 x 1.6 cm. Pulmonary consulted. Stanislawuin for possible infiltrate. History Interval history: Patient was seen and evaluated this morning Patient is pain is getting better Hospitalist Physical - Physical exam Narrative exam: Not in cardiopulmonary distress. The patient appeared well nourished and normally developed. Vital signs as documented. Head exam is unremarkable. No scleral icterus . Neck is without jugular venous distension, thyromegaly, or carotid bruits. Lungs are clear to auscultation. Cardiac exam reveals regular rate and Rhythm. Abdominal exam reveals terminal tenderness Extremities are nonedematous and both femoral and pedal pulses are normal. CHANGE MANAGEMENT LEAD: Alert and oriented 3. No focal weakness. - Constitutional Vitals: Temp Pulse Resp BP Pulse Ox 97.7 F 94 H 16 132/84 96 06/24/20 05:46 06/24/20 05:52 06/24/20 05:46 06/24/20 05:52 06/24/20 05:46 General appearance: Present: no acute distress, well-nourished HEART Score - HEART Score Troponin: Troponin T < 0.010 ng/mL (0.00-0.029) 06/21/20 15:43 Results - Labs CBC & Chem 7: 06/24/20 05:54 06/24/20 05:54 Labs: Laboratory Last Values WBC 5.1 K/mm3 (4.5-11.0) 06/24/20 05:54 RBC 5.73 M/mm3 (3.65-5.03) H 06/24/20 05:54 Hgb 18.3 gm/dl (11.8-15.2) H 06/24/20 05:54 Hct 53.8 % (35.5-45.6) H 06/24/20 05:54 MCV 94 fl (84-94) 06/24/20 05:54 MCH 32 pg (28-32) 06/24/20 05:54 MCHC 34 % (32-34) 06/24/20 05:54 RDW 13.7 % (13.2-15.2) 06/24/20 05:54 Plt Count 220 K/mm3 (140-440) 06/24/20 05:54 Lymph % (Auto) 39.6 % (13.4-35.0) H 06/24/20 05:54 [place] % (Auto) 8.3 % (0.0-7.3) H 06/24/20 05:54 Eos % (Auto) 4.4 % (0.0-4.3) H 06/24/20 05:54 Baso % (Auto) 0.9 % (0.0-1.8) 06/24/20 05:54 Lymph # (Auto) 2.0 K/mm3 (1.2-5.4) 06/24/20 05:54 [place] # (Auto) 0.4 K/mm3 (0.0-0.8) 06/24/20 05:54 Eos # (Auto) 0.2 K/mm3 (0.0-0.4) 06/24/20 05:54 Baso # (Auto) 0.0 K/mm3 (0.0-0.1) 06/24/20 05:54 Seg Neutrophils % 46.8 % (40.0-70.0) 06/24/20 05:54 Seg Neutrophils # 2.4 K/mm3 (1.8-7.7) 06/24/20 05:54 PT 13.1 Sec. (12.2-14.9) 06/21/20 15:43 INR 1.00 (0.87-1.13) 06/21/20 15:43 APTT 26.2 Sec. (24.2-36.6) 06/21/20 15:43 Sodium 136 mmol/L (137-145) L 06/24/20 05:54 Potassium 4.4 mmol/L (3.6-5.0) 06/24/20 05:54 Chloride 99.1 mmol/L (98-107) 06/24/20 05:54 Carbon Dioxide 27 mmol/L (22-30) 06/24/20 05:54 Anion Gap 14 mmol/L 06/24/20 05:54 BUN 12 mg/dL (9-20) 06/24/20 05:54 Creatinine 1.0 mg/dL (0.8-1.3) 06/24/20 05:54 Estimated GFR > 60 ml/min 06/24/20 05:54 BUN/Creatinine Ratio 12 % 06/24/20 05:54 Glucose 93 mg/dL (75-100) 06/24/20 05:54 Hemoglobin A1c 6.0 % (4-6) 06/22/20 08:03 Calcium 9.2 mg/dL (8.4-10.2) 06/24/20 05:54 Total Bilirubin 0.90 mg/dL (0.1-1.2) 06/22/20 08:03 AST 17 units/L (5-40) 06/22/20 08:03 ALT 20 units/L (7-56) 06/22/20 08:03 Alkaline Phosphatase 94 units/L (35-129) 06/22/20 08:03 Troponin T < 0.010 ng/mL (0.00-0.029) 06/21/20 15:43 NT-Pro-B Natriuret Pep 823.2 pg/mL (0-900) 06/21/20 15:43 Total Protein 6.3 g/dL (6.3-8.2) 06/22/20 08:03 Albumin 3.9 g/dL (3.9-5) 06/22/20 08:03 Albumin/Globulin Ratio 1.6 % 06/22/20 08:03 Lipase 51 units/L (13-60) 06/21/20 15:43 Urine Color Straw (Yellow) 06/21/20 Unknown Urine Turbidity Clear (Clear) 06/21/20 Unknown Urine pH 7.0 (5.0-7.0) 06/21/20 Unknown Ur Specific [place] 1.004 (1.003-1.030) 06/21/20 Unknown Urine Protein <15 mg/dl mg/dL (Negative) 06/21/20 Unknown Urine Glucose (UA) Neg mg/dL (Negative) 06/21/20 Unknown Urine Ketones Neg mg/dL (Negative) 06/21/20 Unknown Urine Blood Mod (Negative) 06/21/20 Unknown Urine Nitrite Neg (Negative) 06/21/20 Unknown Urine Bilirubin Neg (Negative) 06/21/20 Unknown Urine Urobilinogen < 2.0 mg/dL (<2.0) 06/21/20 Unknown Ur Leukocyte Esterase Neg (Negative) 06/21/20 Unknown Urine WBC (Auto) 2.0 /HPF (0.0-6.0) 06/21/20 Unknown Urine RBC (Auto) 1.0 /HPF (0.0-6.0) 06/21/20 Unknown U Epithel Cells (Auto) < 1.0 /HPF (0-13.0) 06/21/20 Unknown Urine Bacteria (Auto) 1+ /HPF (Negative) 06/21/20 Unknown Bower/IV: Voiding Method Toilet Active Medications - Current Medications Current Medications: Generic Name Dose Route Start Last Admin Trade Name Freq PRN Reason Stop Dose Admin Acetaminophen 650 mg 06/21/20 22:07 06/22/20 09:55 Acetaminophen 325 Mg Tab PO 650 mg Q4H PRN Administration Pain MILD(1-3)/Fever >100.5/PORRAS Cyclobenzaprine HCl 10 mg 06/23/20 11:00 06/24/20 02:16 Cyclobenzaprine 10 Mg Tab PO 10 mg Q8H JESSIE Administration Dicyclomine HCl 10 mg 06/23/20 10:00 06/23/20 21:28 Dicyclomine 10 Mg/5 Ml Oral Liqd PO 10 mg QID [facility] Administration Docusate Sodium 100 mg 06/22/20 22:00 06/23/20 21:28 Docusate Sodium 100 Mg Cap PO 100 mg BID [facility] Administration Famotidine 20 mg 06/21/20 23:00 06/23/20 21:28 Famotidine 20 Mg/2 Ml Inj IV 20 mg BID [facility] Administration Heparin Sodium (Porcine) 5,000 unit 06/22/20 10:00 06/23/20 21:28 Heparin 5,000 Unit/1 Ml Vial SUB-Q 5,000 unit Q12HR [facility] Administration Hydralazine HCl 10 mg 06/21/20 23:21 06/22/20 05:32 Hydralazine 20 Mg/1 Ml Inj IV 10 mg Q6H PRN Administration Hypertension Hydralazine HCl 50 mg 06/22/20 13:33 06/24/20 05:52 Hydralazine 25 Mg Tab PO 50 mg Q8HR [facility] Administration Hydromorphone HCl 1 mg 06/21/20 22:07 06/22/20 05:32 Hydromorphone 1 Mg/1 Ml Inj IV 1 mg Q3H PRN Administration Pain , Severe (7-10) Ibuprofen 800 mg 06/22/20 13:19 06/22/20 16:40 Ibuprofen 800 Mg Tab PO 800 mg Q8H PRN Administration Headache Levofloxacin 750 mg 06/24/20 10:00 Levofloxacin 750 Mg Tab PO Q24HR [facility] Protocol Morphine Sulfate 2 mg 06/21/20 22:07 Morphine 2 Mg/1 Ml Inj IV Q4H PRN Pain, Moderate (4-6) Nifedipine 90 mg 06/22/20 14:00 06/23/20 10:13 Nifedipine Xl 90 Mg Tab PO Not Given QDAY [facility] Ondansetron HCl 4 mg 06/21/20 22:07 06/21/20 23:51 Ondansetron 4 Mg/2 Ml Inj IV 4 mg Q3H PRN Administration Nausea And Vomiting Oxycodone/Acetaminophen 2 tab 06/23/20 10:30 06/24/20 05:54 Oxycodone /Acetaminophen 5-325mg Tab PO 2 tab Q6H PRN Administration Pain, Moderate (4-6) Polyethylene Glycol 17 gm 06/22/20 13:20 Polyethylene Glycol 3350 17 Gm Powder PO QDAY PRN Constipation Sodium Chloride 10 ml 06/22/20 10:00 06/23/20 21:32 Sodium Chloride 0.9% 10 Ml Flush Syringe IV 10 ml BID JESSIE Administration Sodium Chloride 10 ml 06/21/20 22:07 Sodium Chloride 0.9% 10 Ml Flush Syringe IV PRN PRN LINE FLUSH
[2020-06-24] MEDS: FAMOTIDINE 20 MG/2 ML INJ IV SCH ×2 (10:05→21:02)
[2020-06-24] MEDS: DOCUSATE SODIUM 100 MG CAP PO SCH ×2 (10:05→21:03)
[2020-06-24] MEDS: NIFEdipine XL 90 MG TAB PO SCH (10:05)
[2020-06-24] MEDS: levoFLOXacin 750 MG TAB PO SCH (10:05)
[2020-06-24] MEDS: HEPARIN 5,000 UNIT/1 ML VIAL SUB-Q SCH ×2 (10:06→21:02)
[2020-06-24] MEDS: DICYCLOMINE 10 MG/5 ML ORAL LIQD PO SCH ×3 (12:12→22:25)
--- NOTE | 2020-06-24 13:20 | Event Note ---
Date: 06/24/20 Patient does not have lung mass on on CT of abdomen and pelvis. Agree with radiology read that his is more likely atelectasis. Also no evidence of mass seen on CXR. Patient has no pulmonary symptoms and is not requiring oxygen. No further work up or assessment at this time. Smoking cessation.
[2020-06-25] MEDS: hydrALAZINE 25 MG TAB PO SCH ×2 (00:33→06:48)
[2020-06-25] MEDS: CYCLOBENZAPRINE 10 MG TAB PO SCH ×2 (03:05→10:37)
[2020-06-25] MEDS ORDERED: FAMOTIDINE 20 MG TAB PO SCH (10:00)
[2020-06-25] MEDS: levoFLOXacin 750 MG TAB PO SCH (10:33)
[2020-06-25] MEDS: HEPARIN 5,000 UNIT/1 ML VIAL SUB-Q SCH (10:34)
[2020-06-25] MEDS: DICYCLOMINE 10 MG/5 ML ORAL LIQD PO SCH ×2 (10:34→10:35)
[2020-06-25] MEDS: NIFEdipine XL 90 MG TAB PO SCH (10:34)
[2020-06-25] MEDS: DOCUSATE SODIUM 100 MG CAP PO SCH (10:34)
--- NOTE | 2020-06-25 11:25 | Discharge Summary ---
Providers - Providers Date of Admission: 06/21/20 19:28 Date of discharge: 06/25/20 Attending physician: YELENA PURVIS MD 06/21/20 19:29 Consult to Physician [CONS] Stat Comment: Dr. Mclaughlin spoke with Dr. Morales @[id number] Consulting Provider: FLORENCE MORALES Physician Instructions: Reason For Exam: Small bowel obstruction Primary care physician: CONCRETE FORM SETTER Hospitalization Reason for admission: Small bowel obstruction, back pain Condition: Stable Pertinent studies: CT abdomen and pelvis with and without contrast X-ray of the back Hospital course: History of present illness: 59-year-old -[place]ian male with no significant past medical history comes into the emergency room for severe abdominal pain of 1 week duration. Abdominal pain was intermittent for 1 week associated with nausea and vomiting. From this morning the abdominal pain has increased and vomited 3-4 times. Pain is about 10 on a scale of 1-10 sharp in nature. Intermittent in nature. Radiation to the back present. Patient states he had a bowel movement this morning with no problems. Patient denies any past abdominal surgeries. Patient had one history of DVT/pulmonary embolism. Pulmonary embolism was in . Food is a exacerbating factor. Not eating anything is a relieving factor. Abdominal distention present. Pain happens when he eats. Hospital course (1) Small bowel obstruction Current Visit: Yes Status: Acute Plan to address problem: Small bowel obstruction Multiple dilated loops of small bowel with fluid-filled NG tube for now Surgical consult requested IV fluids and IV Zofran and IV metoclopramide Pain management with IV Dilaudid-patient in severe pain (2) Polycythemia due to fall in plasma volume Current Visit: Yes Status: Acute Plan to address problem: Due to fall in plasma volume secondary to vomiting IV fluids for now (3) Nicotine dependence Current Visit: Yes Status: Chronic Qualifiers: Nicotine product type: cigarettes Plan to address problem: Patient counseled Patient started on NicoDerm patch (4) DVT prophylaxis Current Visit: Yes Status: Acute Plan to address problem: On heparin and GI prophylaxis 06/22/2020 -Patient has NG tube but is not on suction, was seen by general surgery and wants to keep the NG tube for now -Patient did not pass gas -Abdominal pain with distention -We will continue to monitor and follow general surgery recommendations. -Patient has high blood pressure and is on hydralazine IV as needed, will start with p.o. antihypertensives and pain medications once surgery cleared him for oral intake. 06/23/2020 -Patient had bowel movement yesterday. X-ray showed resolution of intestinal obstruction -Patient is complaining severe back/kidney pain. CT was negative for any abnormalities in the kidney. Renal function is within normal limit -Pain control -Patient has been using cocaine and marijuana; counseled about cessation of using it -We will do x-ray of the lumbar spine, PT evaluation. 06/24/2020 - CT abdomen and pelvis with contrast was done and significant for right lower lung mass 5.8 x 1.6 cm. Pulmonary consulted. Marnie for possible infiltrate. 06/25/20; patient states the pain is chronic and advised to have follow-up with his primary care physician. Patient's intestinal obstruction resolved. Surgery consult appreciated. CT abdomen pelvis without and with out contrast did not show any abnormality. X-ray of the lumbar spine did not show anything abnormal. For the right lower lung mass; patient was evaluated by pulmonary and said patient does not have any mass, he is recent imaging was normal. Patient was discharged with empiric antibiotic for possible infiltrate. Patient was hemodynamically stable at the time of discharge. Patient was counseled about using cocaine and marijuana. Patient questions and concerns were addressed at the bedside. Disposition: DC-01 TO HOME OR SELFCARE Final Discharge Diagnosis (Prints w/discharge instructions): For bowel obstruction. Back pain Time spent for discharge: 35 minutes - Discharge Diagnoses (1) Acute abdominal pain Status: Acute (2) Small bowel obstruction Status: Acute (3) Nicotine dependence Status: Chronic Qualifiers: Nicotine product type: cigarettes (4) Cocaine abuse Status: Acute (5) HTN (hypertension) Status: Acute (6) Marijuana abuse Status: Acute (7) Obesity (BMI 30-39.9) Status: Acute Core Measure Documentation - Palliative Care Palliative Care/ Comfort Measures: Not Applicable - Core Measures Any of the following diagnoses?: none Exam - Physical Exam Narrative exam: Not in cardiopulmonary distress. The patient appeared well nourished and normally developed. Vital signs as documented. Head exam is unremarkable. No scleral icterus . Neck is without jugular venous distension, thyromegaly, or carotid bruits. Lungs are clear to auscultation. Cardiac exam reveals regular rate and Rhythm. Abdominal exam reveals nontender, soft, normal bowel sounds. Extremities are nonedematous and both femoral and pedal pulses are normal. TUBE HANDLER: Alert and oriented 3. No focal weakness. - Constitutional Vitals: Temp Pulse Resp BP Pulse Ox 98.2 F 86 18 107/65 97 06/25/20 06:32 06/25/20 06:48 06/25/20 06:32 06/25/20 06:48 06/25/20 06:32 Plan Activity: no restrictions Weight Bearing Status: Full Weight Bearing Diet: low salt Additional Instructions: Need to have follow-up at [facility] in 1 to 2 weeks Follow up with: PRIMARY MD SKYLAR [Primary Care Provider] - 3-5 Days MAYO BOYD MD [Staff Physician] - 7 Days Prescriptions: Docusate Sodium [Colace CAP] 100 mg PO BID #30 capsule Cyclobenzaprine [Flexeril 10 MG TAB] 10 mg PO Q8H #30 tablet levoFLOXacin [Levaquin TAB] 750 mg PO Q24HR #5 tablet polyethylene glycoL 3350 [Miralax 3350] 17 gm PO QDAY PRN #20 powd.pack PRN Reason: Constipation Ibuprofen [Motrin 800 MG tab] 800 mg PO Q8H PRN #30 tablet PRN Reason: Headache Famotidine [Pepcid] 20 mg PO BID #30 tablet NIFEdipine XL [Procardia Xl] 90 mg PO QDAY #30 tablet
[2020-06-25 13:47] VITALS: BP 140/82
== END 2020-06-25 13:20 | disposition home or self-care (01) | DRG 390 ==
LOC: ED 15:13 → 3A 19:28
PROVIDERS: ADMIT Internal Medicine; ATTEND Internal Medicine
DX: K56.609 Unspecified intestinal obstruction, unspecified as to partial versus complete obstruction (principal); D75.1 Secondary polycythemia; F17.210 Nicotine dependence, cigarettes, uncomplicated; F14.10 Cocaine abuse, uncomplicated; E66.9 Obesity, unspecified; Z68.30 Body mass index [BMI] 30.0-30.9, adult; Z71.6 Tobacco abuse counseling
CPT/HCPCS: 36415; 72100; 74022; 74177; 80048; 80053; 81001; 83036; 83690; 83880; 84484; 85025; 85610; 85730; 93005; 96361; 96374; 96375; 99406; G0378; J0360; J1170; J1644; J2270; J2405; J7030; Q9967